=== PATIENT | female | born 1995 | race African-American/Black ===

== ENCOUNTER 2021-06-14 09:57 | Emergency (ER) | payer OTHER, SELFPAY ==
--- NOTE | ~2021-06-14 | CT_ITS ---
EXAMINATION: CT brain wo con INDICATION: Headache COMPARISON: None TECHNIQUE: Standard unenhanced head CT. The dose-length product (DLP) was 605.33 mGy-cm. The mA was a djusted according to patient size. Iterative reconstruction technique was employed. FINDINGS: There is no intracranial hemorrhage, acute infarction, or abnormal mass lesion. The ventric les are normal. There is no abnormal mass effect or midline shift. The rodney-white matter differentiat ion is normal. The basal cisterns are patent. The orbits are normal. The paranasal sinuses, mastoids and calvarium are normal. IMPRESSION: 1. No acute intracranial abnormality. Reviewed, dictated and finalized at location B.
[2021-06-14 10:48] VITALS: BP 129/71; PULSE 79; RESP 18; TEMP 36.6; O2SAT 100
--- NOTE | 2021-06-14 11:12 | ED.NEUROSD ---
HPI - Neuro Symptoms/Deficit General Chief Complaint: Neuro Symptoms/Deficit Stated Complaint: right sided facial numbness resolved Time Seen by Provider: 06/14/21 10:40 Source: patient Mode of arrival: ambulatory Limitations: no limitations History of Present Illness HPI Narrative: This is a 25 year old female that presents to the ER for an episode of facial numbness last night. Reports she was sitting in bed and noted right sided facial numbness. This lasted for about an hour and a half. Followed with a headache. Does report history of migraine with aura, but had not experienced aura like this before. Denies fever, vomiting, vision changes, or other numbness or weakness. Related Data Allergies Allergy/AdvReac Type Severity Reaction Status Date / Time No Known Allergies Allergy Verified 06/14/21 10:56 Review of Systems Review of Systems: CONSTITUTIONAL: Denies fever EYES: Denies visual changes GASTROINTESTINAL: Denies vomiting SKIN: Denies rash NEUROLOGIC: Reports headache. Denies current numbness, or weakness. All systems reviewed & are unremarkable except as noted in HPI and below PMFSH Past Medical History Medical History (Updated 06/14/21 @ 13:37 by Mecca Contreras PA-C) No active medical problems Social History Social History (Updated 06/14/21 @ 11:22 by Mecca Contreras PA-C) Smoking status: Never smoker Substance use: never Exam Narrative: GENERAL: Well-appearing, obese, and in no acute distress. HEAD: Normocephalic, atraumatic. EYES: PERRLA and EOMI. ENT: Nares clear, no rhinorrhea or epistaxis. Mucous membranes moist. Oropharynx without tonsillar hypertrophy exudate or other lesions. Bilateral TMs pearly rodney non-bulging NECK: Supple. No adenopathy or masses. CHEST: Clear to auscultation. No respiratory distress. No wheezes rales or rhonchi HEART: Regular rate and rhythm. No murmur heard. Normal peripheral pulses. ABDOMEN: Soft, nontender, nondistended, normal active bowel sounds. EXTREMITIES: Normal range of motion. No edema. Strength equal in bilateral upper and lower extremities (5/5) SKIN: Warm, dry, no rash. NEURO: No focal deficits. Alert and oriented x3. Cranial nerves II through XII grossly intact PSYCH: Normal mood and affect Course Consultations Consultation #1: Spoke with Dr. Villatoro about patient and workup. Feels comfortable with discharge home with further outpatient evaluation Date: 06/14/21 Time: 13:40 Vital Signs Vital signs: Vital Signs Temperature 97.8 F 06/14/21 10:48 Pulse Rate 79 06/14/21 10:48 Respiratory Rate 18 06/14/21 10:48 Blood Pressure 129/71 06/14/21 10:48 Pulse Oximetry 100 06/14/21 10:48 Temperature 97.8 F 06/14/21 10:48 Pulse Rate 79 06/14/21 10:48 Respiratory Rate 18 06/14/21 10:48 Blood Pressure 129/71 06/14/21 10:48 Pulse Oximetry 100 06/14/21 10:48 MDM - Neuro Symptoms/Deficit MDM Narrative Medical decision making narrative: Patient presents to the emergency department for an episode of right-sided facial numbness last night. No other associated symptoms with this episode. This lasted for about an hour and resolved on its own. After it resolved she did note a headache. She does report history of headaches and migraines in the past. Her vitals are stable she is currently neurologically intact. She reports relief of headache with migraine cocktail. CBC is without leukocytosis. Does show microcytic anemia with hemoglobin of 11.1. ESR was elevated, likely due to her history of chronic anemia. Metabolic panel without concerning findings. CT scan of the brain is without acute findings. Spoke with Dr. Villatoro about patient and workup. Feels comfortable with discharge home with further outpatient evaluation. She is stable and felt appropriate for further outpatient evaluation. She was given warnings to return to the ER Lab Data Attestation: I reviewed the patient's lab results. Result diagrams: 06/14/21 11:44
[2021-06-14 11:49] LABS: Basophils Percent Auto 0.5 % (0.2-1.2); Eosinophils Percent Auto 0.4 % (0-4.4); Hematocrit 34.3 % (37.0-47.0); Hemoglobin 11.1 g/dL (12.0-15.0); Immature Granulocyte Absolute 0.01 K/mm3 (0.00-0.031); Immature Granulocyte Percent A 0.1 % (0-0.5); Lymphocytes Absolute Auto 2.29 K/mm3 (0.9-3.2); Lymphocytes Percent Auto 30.3 % (18.3-44.2); Mean Corpuscular HGB Conc 32.4 g/dl (32-36); Mean Corpuscular Hemoglobin 25.8 pg (26-34); Mean Corpuscular Volume 79.6 fl (80-100); Mean Platelet Volume 9.6 fl (7.4-10.4); Monocytes Absolute Auto 0.5 K/mm3 (0.1-0.6); Monocytes Percent Auto 6.1 % (2.6-8.5); Neutrophils Absolute Auto 4.7 K/mm3 (1.3-6.7); Neutrophils Percent Auto 62.6 % (45.5-73.1); Platelet Count Result 402 k/mm3 (150-375); Red Blood Count 4.31 M/mm3 (4.2-5.4); Red Cell Distribution Width 14.9 % (11.5-14.5); White Blood Count 7.6 K/mm3 (4.5-10.0)
[2021-06-14] MEDS: SODIUM CHLORIDE 0.9% IV 1,000 ML 999 ML IV CONT (11:50)
[2021-06-14] MEDS: METOCLOPRAMIDE HCL INJ 10 MG/2 ML VIAL IV PUSH (11:51)
[2021-06-14] MEDS: diphenhydrAMINE HCl INJ 50 MG/ML VIAL 25 MG IV PUSH (11:53)
[2021-06-14 12:21] LABS: Erythrocyte Sedimentation Rate 61 mm/hr (0-20)
[2021-06-14 12:54] LABS: Alanine Aminotransferase 12 U/L (4-35); Albumin Level 3.9 g/dL (3.5-5.1); Alkaline Phosphatase 69 U/L (38-126); Anion Gap 7 mmol/L (8-16); Aspartate Amino Transferase 16 U/L (14-36); Bilirubin,Total 0.5 mg/dL (0.2-1.3); Blood Urea Nitrogen 10 mg/dL (7-17); Calcium 9.4 mg/dL (8.4-10.2); Carbon Dioxide 24 mmol/L (22-30); Chloride 107 mmol/L (98-107); Estimated CRCL calculation 203 ml/min; Estimated Glomerular Filt Rate > 60; Glucose 81 mg/dL (65-110); Potassium 4.5 mmol/L (3.4-5.0); Sodium 138 mmol/L (137-145)
[2021-06-14 14:10] VITALS: BP 113/79; PULSE 73; RESP 16; O2SAT 100
== END 2021-06-14 14:10 | disposition home or self-care (01) ==
PROVIDERS: Physician Assistant; Emergency Provider Emergency Medicine
DX: G43.109 Migraine with aura, not intractable, without status migrainosus (principal)
CPT/HCPCS: 36415; 70450; 80053; 85025; 85652; 96361; 96365; 96375; 99284; J0131; J1200; J2765; J7030